=== PATIENT | male | born 1945 | race Hispanic/Latino ===

== ENCOUNTER 2023-06-15 10:45 | Day surgery (SDC) | payer OTHER ==
[2023-06-13 14:55] VITALS: BP 125/59; PULSE 102; RESP 18
[2023-06-13 14:57] LABS: BASOPHILS # (AUTO) 0.04 K/uL (0.00-0.20); BASOPHILS % (AUTO) 0.5 % (0.0-5.0); EOSINOPHILS # (AUTO) 0.17 K/uL (0.00-0.70); EOSINOPHILS % (AUTO) 1.9 % (0.0-8.0); IMMATURE GRANULOCYTE ABSOLUTE 0.04 K/uL (0-1); LYMPHOCYTES # (AUTO) 1.3 K/uL (1.0-4.8); LYMPHOCYTES % (AUTO) 15.1 % (21.0-51.0); MEAN CORPUSCULAR HEMOGLOBIN 28.9 pg (27.0-33.0); MEAN CORPUSCULAR HGB CONC 33.9 g/dL (32.0-36.0); MEAN CORPUSCULAR VOLUME 85.4 fL (79-99); MONOCYTES # (AUTO) 0.6 K/uL (0.1-1.0); MONOCYTES % (AUTO) 7.3 % (3.0-13.0); NEUTROPHILS # (AUTO) 6.6 K/uL (1.8-7.7); NEUTROPHILS % (AUTO) 74.7 % (40.0-77.0); PLATELET COUNT (AUTO) 366 K/uL (130-400); RED BLOOD CELL COUNT(AUTO) 3.63 MIL/uL (4.50-6.20); WHITE BLOOD COUNT (AUTO) 8.8 K/uL (4.8-10.8)
[2023-06-13 14:58] LABS: CREATININE 1.5 mg/dL (0.5-1.5); POTASSIUM 5.1 mmol/L (3.5-5.1)
[2023-06-15] VITALS (18 sets, daily range): BP systolic 105–146; BP diastolic 47–66; PULSE 61–71; RESP 12–18
[~2023-06-15] VITALS: Ht 172.7 cm; Wt 65.0 kg
[~2023-06-15 10:45] MED LIST: AMLO-258 PO; ATOR40TA69 PO; FAMO40TA7 PO; FINA5TAB41 PO; FLUT16H NASAL; GLIP10TA9 PO; LOSA50TA64 PO; METF-446 PO; METO25TA6 PO; TAMS-1 PO
[2023-06-15] MEDS ORDERED: CEFTRIAXONE 1G VIAL ONE (11:58)
[2023-06-15] MEDS ORDERED: 0.9%NACL 1000ML 1,000 ML IV ONE (11:58)
[2023-06-15] MEDS ORDERED: LIDOCAINE PF 100MG/5ML (2%) SYRINGE 5ML ONE (14:43)
[2023-06-15] MEDS ORDERED: DEXAMETHASONE SOD PHOSPHATE 10MG/ML 1ML VIAL ONE (14:43)
[2023-06-15] MEDS ORDERED: ONDANSETRON 4MG INJ ONE (14:43)
[2023-06-15] MEDS ORDERED: FENTANYL CITRATE PF 50 MCG/1 ML 5ML AMP IV ONE ×2 (14:44→14:47)
[2023-06-15] MEDS ORDERED: MIDAZOLAM HCL 1 MG/ML 5ML VIAL ONE (14:44)
[2023-06-15] MEDS ORDERED: PROPOFOL 10 MG/ML 20ML VIAL IV ONE (14:44)
[2023-06-15] MEDS ORDERED: GLYCOPYRROLATE 1 MG/5 ML SYRINGE ONE (16:19)
[2023-06-15] MEDS ORDERED: KETOROLAC 30MG VIAL (30MG/ML) ONE (16:47)
[2023-06-15] MEDS ORDERED: EPHEDRINE SULFATE 50 MG/ML AMPULE ONE (16:51)
[2023-06-15] MEDS ORDERED: FENTANYL CITRATE PF 50 MCG/1 ML 2ML VIAL ONE ×2 (17:18→17:30)
[2023-06-15] MEDS ORDERED: PHENAZOPYRIDINE HCL 200 MG TABLET ONE (18:56)
== END 2023-06-15 19:30 | disposition home or self-care (01) ==
LOC: DAH 10:45
PROVIDERS: ATTEND Urology
DX: N40.1 Benign prostatic hyperplasia with lower urinary tract symptoms (principal); R33.8 Other retention of urine; R39.14 Feeling of incomplete bladder emptying; N41.1 Chronic prostatitis; N30.80 Other cystitis without hematuria; I10 Essential (primary) hypertension; E11.9 Type 2 diabetes mellitus without complications; F41.9 Anxiety disorder, unspecified; K21.9 Gastro-esophageal reflux disease without esophagitis; Z79.899 Other long term (current) drug therapy; Z79.01 Long term (current) use of anticoagulants; Z79.84 Long term (current) use of oral hypoglycemic drugs; Z98.890 Other specified postprocedural states
CPT/HCPCS: 80048; 85025; 36415; 93005; 52648; 82948 ×2; 88305; A6260; A4663; A4344; A4354; J3010 ×4; J3490 ×2; J1100; J7030; J2001; J2250; J0696; J2704; J2405; J1885; A4358; A4215; A4223; A4222; A4221; A5113; A4600; A4510